=== PATIENT | female | born 1980 | race African-American/Black ===

== ENCOUNTER 2016-06-30 22:27 | Emergency (ER) | payer SELFPAY ==
[~2016-06-30] VITALS: Ht 165.1 cm; Wt 65.0 kg
[~2016-06-30 22:27] MED LIST: MULTTAB67 PO; SERO200T PO; TRIL300T PO; VIST25CA PO
[2016-06-30 22:29] VITALS: BP 148/78; PULSE 98; RESP 18; TEMP 98; O2SAT 96
--- NOTE | 2016-07-01 | PD ---
HPI Chief Complaint: Medical Clearance Time Seen by Provider: 23:55 Travel History International Travel<30 days: No Contact w/Intl Traveler<30days: No Traveled to known affect area: No History of Present Illness HPI 35-year-old black female presents to emergency department for evaluation of a rash. She states that she had stayed over a friend's house who had pets. She noticed little bumps on her skin over last several days. They're pruritic in nature. She states that she feels that she needs an IV and fluids. She also states that she needs blood work. She denies any fever or chills. No cough or congestion. No shortness of breath. No vomiting. No abdominal pain. PFSH Past Medical History Narrative Medical Depression, substance abuse, HIV Diminished Hearing: No Immune Disorder: Yes (HIV) Psychiatric: Yes LMP: 06/10/16 : 2 Para: 2 Past Surgical History Surgical History: No Previous Surgery Social History Alcohol Use: Yes Tobacco Use: Yes Substance Use: Yes Allergies-Medications (Allergen,Severity, Reaction): Coded Allergies: Haldol (Verified Allergy, Severe, 06/30/16) Reported Meds & Prescriptions Reported Meds & Active Scripts Active Reported Vistaril (Hydroxyzine Pamoate) 25 Mg Cap 25 Mg PO TID Seroquel (Quetiapine Fumarate) 200 Mg Tab 200 Mg PO HS Multiple Vitamin 1 Tab 1 Tab PO DAILY Trileptal (Oxcarbazepine) 300 Mg Tab 300 Mg PO BID Review of Systems Except as stated in HPI: all other systems reviewed are Neg Physical Exam Narrative GENERAL: This is a well-nourished, well-developed patient, in no apparent distress. SKIN: The patient has a few risk oriented mildly erythematous papular lesions on her extremities, trunk and back., ecchymoses or lesions. Warm and dry. HEAD: Atraumatic. Normocephalic. EYES: PERRL, EOMI, no discharge or injection. No scleral icterus. EARS: Clear NOSE: Nasal turbinates appear normal. THROAT: Mucosa pink and moist. Airway patent. NECK: Trachea midline. supple, moves head freely. LUNGS: Clear to auscultation. CV: Regular in rhythm. ABDOMEN: Soft nontender. EXT: No clubbing cyanosis or edema. Data Data Last Documented VS Vital Signs Date Time Temp Pulse Resp B/P Pulse Ox O2 Delivery O2 Flow Rate FiO2 06/30/16 22:29 98.0 98 18 148/78 96 Room Air MDM Medical Decision Making Medical Screen Exam Complete: Yes Emergency Medical Condition: Yes Medical Record Reviewed: Yes Differential Diagnosis MDM: High Differential diagnoses: Abscess, folliculitis, cellulitis, lymphangitis, abrasion, contact dermatitis, flea bites Narrative Course The patient appears to have insect/flea bites. She will be given a prescription for Zyrtec and triamcinolone cream. This is insect bites Diagnosis Primary Impression: Insect bites Patient Instructions: General Instructions Additional Instructions: Rest. Zyrtec and triamcinolone. Use insect repellent. Avoid staying in any areas with possible fleas. Follow-up with a medical doctor this week for recheck. Med/Other Pt SpecificInfo: Prescription(s) given Disposition: 01 DISCHARGE HOME Condition: Stable Fernando Gutierrez Jul 01, 2016 00:00
[2016-07-01] MEDS ORDERED: ZYRT10CA PO (00:02)
[2016-07-01] MEDS ORDERED: TRIA0.1L TOPICAL (00:02)
== END 2016-07-01 00:26 | disposition home or self-care (01) ==
LOC: NEPB 22:27
DX: T14.8 Other injury of unspecified body region (principal); W57.XXXA Bitten or stung by nonvenomous insect and other nonvenomous arthropods, initial encounter; Z72.0 Tobacco use; Z21 Asymptomatic human immunodeficiency virus [HIV] infection status
CPT/HCPCS: 99282

== ENCOUNTER 2016-07-01 00:32 | Emergency (ER) | payer SELFPAY ==
[~2016-07-01 00:32] MED LIST changes: +TRIA0.1L TOPICAL; +ZYRT10CA PO
[2016-07-01 01:00] VITALS: BP 141/67; PULSE 87; RESP 16; TEMP 97.9; O2SAT 96
[2016-07-01] MEDS ORDERED: SODIUM CHLOR 0.9% 1000 ML INJ 1,000 ML IV SCH (01:11)
[2016-07-01] MEDS ORDERED: SODIUM CHLORIDE 0.9% FLUSH 5 ML FLUSH IVF PRN (01:15)
[2016-07-01 01:46] LABS: BASOPHIL % 0.6 % (0.0-2.0); EOSINOPHIL # 0.1 TH/MM3 (0-0.4); EOSINOPHIL % 1.1 % (0.0-4.0); HEMATOCRIT 38.7 % (35.0-46.0); HEMO FLAGS DIFF FINAL; LYMPH % 27.2 % (9.0-44.0); LYMPHOCYTE # 1.5 TH/MM3 (1.0-4.8); MEAN CELL VOLUME 90.9 FL (80.0-100.0); MEAN CORPUSCULAR HEMOGLOBIN 31.1 PG (27.0-34.0); MEAN CORPUSCULAR HGB CONC 34.2 % (32.0-36.0); MONO % 15.9 % (0.0-8.0); NEUT % 55.2 % (16.0-70.0); PLATELET COUNT 276 TH/MM3 (150-450); RED BLOOD COUNT 4.26 MIL/MM3 (4.00-5.30); RED CELL DISTRIBUTION WIDTH 12.5 % (11.6-17.2); WHITE BLOOD COUNT 5.4 TH/MM3 (4.0-11.0)
--- NOTE | 2016-07-01 01:52 | PD ---
HPI Chief Complaint: GI Complaint Time Seen by Provider: 00:52 Travel History International Travel<30 days: No Contact w/Intl Traveler<30days: No Traveled to known affect area: No History of Present Illness HPI 35-year-old female arrives to the ER and complains of what she believes to be kidney pain and liver pain. She believes she is dehydrated. She states she has recently used drugs, "maybe Adderall." She denies abdominal pain or fever. She also reports insomnia 3 days. Severity [id number]. She denies suicidal/homicidal ideation. PFSH Past Medical History Diminished Hearing: No Immune Disorder: Yes (HIV) Psychiatric: Yes ?: Unknown LMP: PT UNSURE : 2 Para: 2 Past Surgical History Surgical History: No Previous Surgery Social History Alcohol Use: Yes (OCC) Tobacco Use: No ("I JUST QUIT") Substance Use: Yes Allergies-Medications (Allergen,Severity, Reaction): Coded Allergies: Haldol (Verified Allergy, Severe, 06/30/16) Reported Meds & Prescriptions Reported Meds & Active Scripts Active Triamcinolone Topical (Triamcinolone Acetonide) 0.1% Lotn 1 Applic TOPICAL TID Zyrtec Allergy (Cetirizine HCl) 10 Mg Cap 10 Mg PO DAILY Reported Vistaril (Hydroxyzine Pamoate) 25 Mg Cap 25 Mg PO TID Seroquel (Quetiapine Fumarate) 200 Mg Tab 200 Mg PO HS Multiple Vitamin 1 Tab 1 Tab PO DAILY Trileptal (Oxcarbazepine) 300 Mg Tab 300 Mg PO BID Review of Systems Except as stated in HPI: all other systems reviewed are Neg Physical Exam Narrative GENERAL: 35-year-old female pleasant SKIN: Warm and dry. HEAD: Atraumatic. Normocephalic. EYES: Pupils equal and round. No scleral icterus. No injection or drainage. ENT: No nasal bleeding or discharge. Mucous membranes pink and moist. NECK: Trachea midline. No JVD. CARDIOVASCULAR: Regular rate and rhythm. No murmur appreciated. RESPIRATORY: No accessory muscle use. Clear to auscultation. Breath sounds equal bilaterally. GASTROINTESTINAL: Abdomen soft, non-tender, nondistended. Hepatic and splenic margins not palpable. MUSCULOSKELETAL: No obvious deformities. No clubbing. No cyanosis. No edema. NEUROLOGICAL: Awake and alert. No obvious cranial nerve deficits. Motor grossly within normal limits. Normal speech. PSYCHIATRIC: No HI/SI. No apparent response to internal stimuli. Data Data Last Documented VS Vital Signs Date Time Temp Pulse Resp B/P Pulse Ox O2 Delivery O2 Flow Rate FiO2 07/01/16 01:00 97.9 87 16 141/67 96 Room Air Orders Complete Blood Count With Diff (07/01/16 01:11) Comprehensive Metabolic Panel (07/01/16 01:11) Urinalysis - C+S If Indicated (07/01/16 01:11) Iv Access Insert/Monitor (07/01/16 01:11) Ecg Monitoring (07/01/16 01:11) Oximetry (07/01/16 01:11) Sodium Chlor 0.9% 1000 Ml Inj (Ns 1000 M (07/01/16 01:11) Sodium Chloride 0.9% Flush (Ns Flush) (07/01/16 01:15) Drug Screen, Random Urine (07/01/16 01:41) Labs Laboratory Tests Test 07/01/16 01:35 White Blood Count 5.4 TH/MM3 Red Blood Count 4.26 MIL/MM3 Hemoglobin 13.3 GM/DL Hematocrit 38.7 % Mean Corpuscular Volume 90.9 FL Mean Corpuscular Hemoglobin 31.1 PG Mean Corpuscular Hemoglobin 34.2 % Concent Red Cell Distribution Width 12.5 % Platelet Count 276 TH/MM3 Mean Platelet Volume 8.5 FL Neutrophils (%) (Auto) 55.2 % Lymphocytes (%) (Auto) 27.2 % Monocytes (%) (Auto) 15.9 % Eosinophils (%) (Auto) 1.1 % Basophils (%) (Auto) 0.6 % Neutrophils # (Auto) 3.0 TH/MM3 Lymphocytes # (Auto) 1.5 TH/MM3 Monocytes # (Auto) 0.9 TH/MM3 Eosinophils # (Auto) 0.1 TH/MM3 Basophils # (Auto) 0.0 TH/MM3 CBC Comment DIFF FINAL Differential Comment Sodium Level 139 MEQ/L Potassium Level 3.6 MEQ/L Chloride Level 103 MEQ/L Carbon Dioxide Level 26.2 MEQ/L Anion Gap 10 MEQ/L Blood Urea Nitrogen 15 MG/DL Creatinine 1.00 MG/DL Estimat Glomerular Filtration 77 ML/MIN Rate Random Glucose 86 MG/DL Calcium Level 8.8 MG/DL Total Bilirubin 0.3 MG/DL Aspartate Amino Transf 20 U/L (AST/SGOT) Alanine Aminotransferase 18 U/L (ALT/SGPT) Alkaline Phosphatase 56 U/L Total Protein 8.5 GM/DL Albumin 3.6 GM/DL MDM Medical Decision Making Medical Screen Exam Complete: Yes Emergency Medical Condition: Yes Medical Record Reviewed: Yes Differential Diagnosis Electrolyte imbalance, anemia, dehydration, polysubstance abuse, renal insufficiency, liver disease Narrative Course CBC & BMP Diagram 07/01/16 01:35 LFTs normal The patient has been wandering about the pod and the ER generally. No objective sign of distress is been observed. The patients results and examination findings were discussed. The repeat examination is unremarkable and benign. The history, exam, diagnostic testing, and current condition do not suggest any significant pathology to warrant further testing, continued ED treatment, admission, or surgical evaluation at this point. The vital signs have been stable. The patient does not have uncontrollable pain, intractable vomiting, or other significant symptoms. The patient's condition is stable and appropriate for discharge. Diagnosis Primary Impression: Insomnia Qualified Code: G47.00 - Insomnia, unspecified type Referrals: Primary Care Physician call for appointment Additional Instructions: You have a choice when it comes to health care, and we are glad that you chose [facility]. Hopefully, we have met your expectations on today's visit. You are welcome to return to [facility] at any time, as we are committed to meeting the health care needs of our community. Med/Other Pt SpecificInfo: No Change to Meds Disposition: 01 DISCHARGE HOME Condition: Stable Sukumar Espana MD Jul 01, 2016 01:52
[2016-07-01 02:06] LABS: ALT (GPT) 18 U/L (10-53); ANION GAP 10 MEQ/L (5-15); AST (GOT) 20 U/L (15-37); BICARBONATE 26.2 MEQ/L (21.0-32.0); BLOOD UREA NITROGEN 15 MG/DL (7-18); CHLORIDE 103 MEQ/L (98-107); GLOMERULAR FILTRATION RATE 77 ML/MIN (>89); POTASSIUM 3.6 MEQ/L (3.5-5.1); SODIUM (NA) 139 MEQ/L (136-145)
[2016-07-01 02:07] LABS: ALKALINE PHOSPHATASE 56 U/L (45-117); TOTAL BILIRUBIN ADULT 0.3 MG/DL (0.2-1.0)
== END 2016-07-01 04:40 | disposition home or self-care (01) ==
LOC: NEPC 00:32
DX: G47.00 Insomnia, unspecified (principal); Z87.891 Personal history of nicotine dependence
CPT/HCPCS: 80053; 85025; 99283; J7030

== ENCOUNTER 2016-07-01 04:37 | Emergency (ER) | payer OTHER ==
[~2016-07-01] VITALS: Ht 165.1 cm; Wt 70.0 kg
[2016-07-01] MEDS ORDERED: ZIPRASIDONE MESYLATE 20 MG VIAL IM ONE (05:30)
[2016-07-01] MEDS ORDERED: diphenhydrAMINE HCL 50 MG/ML VIAL IM ONE (05:30)
--- NOTE | 2016-07-01 06:27 | PD ---
HPI Chief Complaint: Erazo act Time Seen by Provider: 06:22 Travel History International Travel<30 days: No Contact w/Intl Traveler<30days: No Traveled to known affect area: No History of Present Illness HPI 35-year-old black female returns to the ER for a third visit this evening. This time she is under a Erazo act. The patient allegedly had notified PD that she was having suicidal thoughts. She did not elaborate on any plan. Here in the ER she states that she has not been properly evaluated. She wants IV fluids , blood work, and a protein diet. She also would like a multivitamin. The patient is refusing to get back into her examination room. She is being confrontational with the nursing staff. PFSH Past Medical History Diminished Hearing: No Immune Disorder: Yes (HIV) Psychiatric: Yes : 2 Para: 2 Social History Alcohol Use: Yes (OCC) Tobacco Use: No ("I JUST QUIT") Substance Use: Yes Allergies-Medications (Allergen,Severity, Reaction): Coded Allergies: Haldol (Verified Allergy, Severe, 06/30/16) Reported Meds & Prescriptions Reported Meds & Active Scripts Active Triamcinolone Topical (Triamcinolone Acetonide) 0.1% Lotn 1 Applic TOPICAL TID Zyrtec Allergy (Cetirizine HCl) 10 Mg Cap 10 Mg PO DAILY Reported Vistaril (Hydroxyzine Pamoate) 25 Mg Cap 25 Mg PO TID Seroquel (Quetiapine Fumarate) 200 Mg Tab 200 Mg PO HS Multiple Vitamin 1 Tab 1 Tab PO DAILY Trileptal (Oxcarbazepine) 300 Mg Tab 300 Mg PO BID Review of Systems Except as stated in HPI: all other systems reviewed are Neg General / Constitutional: No: Fever, Chills Eyes: No: Blurred Vision, Visual changes HENT: Positive: Headaches, No: Sore Throat Cardiovascular: No: Chest Pain or Discomfort, Palpitations Respiratory: No: Cough, Shortness of Breath Gastrointestinal: No: Nausea, Vomiting Genitourinary: No: Frequency, Dysuria Musculoskeletal: No: Myalgias, Arthralgias Skin: Positive Rash, Positive Itching Neurologic: No: Weakness, Syncope Psychiatric: Positive: Suicidal Ideations, Disorder of Thought, Mood Disorder, Substance Abuse, No: Anxiety, Depression, Homicidal Ideation Physical Exam Narrative GENERAL: Well-nourished, well-developed patient. SKIN: Warm and dry. Patient has several excoriated papular lesions on her arms and trunk consistent with insect bite HEAD: Normocephalic and atraumatic. EYES: No scleral icterus. No injection or drainage. ENT: No nasal drainage noted. Mucous membranes pink. Airway patent. NECK: Supple, trachea midline. Moves head freely without obvious discomfort. CARDIOVASCULAR: Regular rate and rhythm without murmurs, gallops, or rubs. RESPIRATORY: Breath sounds equal bilaterally. No accessory muscle use. GASTROINTESTINAL: Abdomen soft, non-tender, nondistended. EXTREMITIES: No cyanosis or edema. BACK: Nontender without obvious deformity. No CVA tenderness. NEURO: Patient is alert and oriented. no sensorimotor deficits. Nonfocal. Normal speech. PSYCH: Patient is fixated on the delusion of dehydration and requiring IV fluids. No auditory or visual hallucinations. Data Data Orders Drug Screen, Random Urine (07/01/16 04:59) Alcohol (Ethanol) (07/01/16 04:59) Comprehensive Metabolic Panel (07/01/16 05:06) Psych Screen (07/01/16 05:06) Ziprasidone Inj (Geodon Inj) (07/01/16 05:30) Diphenhydramine Inj (Benadryl Inj) (07/01/16 05:30) Restraints Non-Violent [id number] (07/01/16 05:27) Diet Regular Basic (07/01/16 Breakfast) MDM Medical Decision Making Medical Screen Exam Complete: Yes Emergency Medical Condition: Yes Medical Record Reviewed: Yes Differential Diagnosis MDM: High Differential diagnoses: Schizophrenia, schizoaffective disorder, bipolar, anxiety, depression, adjustment reaction, mood disorder NOS, ODD, depressive disorder NOS, dementia, dementia with agitation, psychosis NOS, substance induced mood disorder, intermittent explosive disorder, Asperger syndrome, infection,electrolyte abnormality, malingering. Narrative Course Mental health screening discussed with the patient. Psychiatric screen ordered. The patient has been uncooperative and intrusive. She is refusing to stay in her room. Nonviolent restraints have been ordered. She is given Geodon 20 mg IM and 50 mg of Benadryl IM and seclusion with her door closed. Once the patient becomes more cooperative and responsive to treatment patient's seclusion will be D escalated. The patient's been medically cleared. Condition: Stable Fernando Gutierrez Jul 01, 2016 06:27
[2016-07-01 06:37] LABS: AMPHETAMINE, URINE NEG (NEG); BARBITURATES, URINE NEG (NEG); COCAINE, URINE POS (NEG)
[2016-07-01 14:29] VITALS: BP 136/80; PULSE 80; RESP 18; TEMP 98.5; O2SAT 98
== END 2016-07-01 15:19 ==
LOC: NEPJ 04:37
DX: F43.23 Adjustment disorder with mixed anxiety and depressed mood (principal); Z87.891 Personal history of nicotine dependence
CPT/HCPCS: 80307; 96372; 99284; J1200; J3486

== ENCOUNTER 2016-09-19 21:07 | Emergency (ER) | payer SELFPAY ==
[~2016-09-19] VITALS: Ht 165.1 cm; Wt 65.0 kg
[2016-09-19 21:09] VITALS: BP 132/94; PULSE 88; RESP 18; TEMP 98.3; O2SAT 96
[2016-09-20 04:42] LABS: CHLAMYDIA PCR NOT DETECTED (NOT DETECT); NEISSERIA PCR NOT DETECTED (NOT DETECT)
[2016-09-20] MEDS ORDERED: AZITHROMYCIN PWD FOR SUSP 1 GM PACKET PO ONE (04:45)
[2016-09-20] MEDS ORDERED: cefTRIAXone 250 MG VIAL IM ONE (04:45)
[2016-09-20] MEDS ORDERED: LIDOCAINE HCL 1% 50 ML VIAL IM ONE (04:45)
--- NOTE | 2016-09-20 04:47 | PD ---
HPI Chief Complaint: Abdominal Pain Time Seen by Provider: 02:07 Travel History International Travel<30 days: No Contact w/Intl Traveler<30days: No Traveled to known affect area: No History of Present Illness HPI 36-year-old female arrives to the ER with complaint of nausea vomiting diarrhea for 4 days. On my assessment the patient is soundly asleep. She is so sleepy that she is unable to cooperate with the history of present illness and physical examination. Eventually she stated she thinks she might have an STD. She states her last menstruation was several days ago. History is otherwise limited. PFSH Past Medical History Cardiovascular Problems: Yes (HTN) Diminished Hearing: No Immune Disorder: Yes (HIV) Psychiatric: Yes (bipolar) Tetanus Vaccination: > 5 Years Influenza Vaccination: No ?: Unknown LMP: 09/13 : 2 Para: 2 Social History Alcohol Use: Yes (OCC) Tobacco Use: No ("I JUST QUIT") Substance Use: Yes Allergies-Medications (Allergen,Severity, Reaction): Coded Allergies: Haldol (Verified Allergy, Severe, 09/20/16) Reported Meds & Prescriptions Reported Meds & Active Scripts Active Triamcinolone Topical (Triamcinolone Acetonide) 0.1% Lotn 1 Applic TOPICAL TID Zyrtec Allergy (Cetirizine HCl) 10 Mg Cap 10 Mg PO DAILY Reported Vistaril (Hydroxyzine Pamoate) 25 Mg Cap 25 Mg PO TID Seroquel (Quetiapine Fumarate) 200 Mg Tab 200 Mg PO HS Multiple Vitamin 1 Tab 1 Tab PO DAILY Trileptal (Oxcarbazepine) 300 Mg Tab 300 Mg PO BID Review of Systems ROS Limitations: Uncooperative Physical Exam Narrative GENERAL: Well-nourished well-developed 36-year-old female GENITOURINARY: Minimal discharge in the vault white. + CMT. SKIN: Focused skin assessment warm/dry. HEAD: Atraumatic. Normocephalic. EYES: Pupils equal and round. No scleral icterus. No injection or drainage. ENT: No nasal bleeding or discharge. Mucous membranes pink and moist. NECK: Trachea midline. No JVD. CARDIOVASCULAR: Regular rate and rhythm. No murmur appreciated. RESPIRATORY: No accessory muscle use. Clear to auscultation. Breath sounds equal bilaterally. GASTROINTESTINAL: Abdomen soft, non-tender, nondistended. Hepatic and splenic margins not palpable. MUSCULOSKELETAL: No obvious deformities. No clubbing. No cyanosis. No edema. NEUROLOGICAL: Awake and alert. No obvious cranial nerve deficits. Motor grossly within normal limits. Normal speech. PSYCHIATRIC: Appropriate mood and affect; insight and judgment normal. Data Data Last Documented VS Vital Signs Date Time Temp Pulse Resp B/P Pulse Ox O2 Delivery O2 Flow Rate FiO2 09/20/16 01:58 18 09/19/16 21:09 98.3 88 132/94 96 Room Air VS reviewed Orders Gc And Chlamydia Pcr (09/20/16 02:18) Wet Prep Profile (09/20/16 02:18) Urinalysis - C+S If Indicated (09/20/16 02:18) Ed Urine Pregnancytest Poc (09/20/16 02:18) Labs Laboratory Tests Test 09/20/16 02:47 Clue Cells (Wet Prep) NONE SEEN Vaginal Trichomonas (Wet Prep) NONE SEEN Vaginal Yeast (Wet Prep) NONE SEEN Chlamydia trachomatis DNA NOT DETECTED (PCR) Neisseria gonorrhoeae DNA NOT DETECTED (PCR) MDM Medical Decision Making Medical Screen Exam Complete: Yes Emergency Medical Condition: Yes Medical Record Reviewed: Yes Differential Diagnosis IUP, UTI, ectopic , ov torsion, appendicitis, TOA, cervicitis, BV, Trichomoniasis, ov cyst, hernia, mittelschmerz, pain from menstruation Narrative Course Etiology is unclear however we can say with a reasonable degree of certainty there is no emergency as the patient has remained soundly sleeping throughout her ER stay. Her abdomen is soft. There is no focus of tenderness. Emperic coverage for cervicitis provided. Diagnosis Primary Impression: Cervicitis Referrals: Primary Care Physician 2 days Additional Instructions: You have a choice when it comes to health care, and we are glad that you chose [facility]. Hopefully, we have met your expectations on today's visit. You are welcome to return to [facility] at any time, as we are committed to meeting the health care needs of our community. Med/Other Pt SpecificInfo: No Change to Meds Disposition: 01 DISCHARGE HOME Condition: Stable Sukumar Espana MD Sep 20, 2016 04:47
[2016-09-20 05:23] LABS: AUTOMATED NEUTROPHIL # 1.5 TH/MM3 (1.8-7.7); BASOPHIL % 0.6 % (0.0-2.0); EOSINOPHIL # 0.1 TH/MM3 (0-0.4); EOSINOPHIL % 2.9 % (0.0-4.0); HEMATOCRIT 35.2 % (35.0-46.0); HEMO FLAGS DIFF FINAL; LYMPH % 43.9 % (9.0-44.0); LYMPHOCYTE # 1.7 TH/MM3 (1.0-4.8); MEAN CELL VOLUME 90.3 FL (80.0-100.0); MEAN CORPUSCULAR HEMOGLOBIN 30.9 PG (27.0-34.0); MEAN CORPUSCULAR HGB CONC 34.2 % (32.0-36.0); MONO % 12.6 % (0.0-8.0); PLATELET COUNT 281 TH/MM3 (150-450); RED CELL DISTRIBUTION WIDTH 13.6 % (11.6-17.2); WHITE BLOOD COUNT 3.8 TH/MM3 (4.0-11.0)
[2016-09-20 05:42] LABS: ANION GAP 7 MEQ/L (5-15)
[2016-09-20 05:44] LABS: ALKALINE PHOSPHATASE 52 U/L (45-117); ALT (GPT) 17 U/L (10-53); AST (GOT) 20 U/L (15-37); BICARBONATE 27.8 MEQ/L (21.0-32.0); BLOOD UREA NITROGEN 8 MG/DL (7-18); CHLORIDE 105 MEQ/L (98-107); GLOMERULAR FILTRATION RATE 86 ML/MIN (>89); POTASSIUM 3.2 MEQ/L (3.5-5.1); SODIUM (NA) 140 MEQ/L (136-145); TOTAL BILIRUBIN ADULT 0.2 MG/DL (0.2-1.0)
[2016-09-20 05:56] LABS: AMPHETAMINE, URINE NEG (NEG); BARBITURATES, URINE NEG (NEG); COCAINE, URINE POS (NEG)
[2016-09-20 06:30] LABS: BACTERIA, URINE RARE /hpf; BLOOD, URINE NEG (NEG); COMMENT (UR) CULT NOT INDICATED; CULTURE IF INDICATED CULT NOT INDICATED; GLUCOSE,URINE NEG (NEG); KETONE, URINE NEG (NEG); MUCUS URINE FEW /lpf (OCC); NITRITE,URINE NEG (NEG); PH, URINE 6.5 (5.0-8.5); SQUAMOUS EPITHELIAL CELL URINE 1 /hpf (0-5); URINE COLOR YELLOW (YELLW/STRAW)
[2016-09-20 10:00] VITALS: BP 121/81; PULSE 79; RESP 18; O2SAT 99
[2016-09-20 14:01] VITALS: BP 126/86; PULSE 81; RESP 18; TEMP 98.3; O2SAT 96
--- NOTE | 2016-09-20 14:50 | PD ---
History of Present Illness Chief Complaint: Abdominal Pain Time Seen by Provider: 14:30 Travel History International Travel<30 Days: No Contact w/Intl Traveler<30days: No Known affected area: No Legal Status Legal Status: Voluntary History of Present Illness: This is a 36-year-old female who initially presented to the emergency department with complaints of abdominal pain. When she was being readied for discharged she apparently threatened suicide if she was not admitted. She was transferred over to the psychiatric area where this physician evaluated her. The patient sometimes threatens suicide and other times does not. She is obviously being manipulative and states if she gets treated the way she wants she will not be suicidal. She also states that she wants lunch and she wants a ride home, indicating that she has future plans. This physician was with her when she called her mother and the patient told her mother she had been using illicit drugs for the last several weeks and that it was "messing" her up on the inside and that she needed to stop. Apparently she was at [facility] yesterday but refused to wait for a bed. She does not appreciate hearing this facility is not license for detox and rehabilitation. She does not show symptoms of true depression as she does not exhibit a depressed mood, anhedonia , diminished energy, appetite loss or sleep disturbance. Despite the potential for this patient to act out if not given her way, this physician feels it is counter therapeutic to admit her to psychiatry. She states at one time that she has "bipolar, schizophrenia, OCD, depression". She does not actually appear to have any psychotic illness or bipolar illness. This physician informed her that the main problem she has is with drug abuse. PFSH Past Medical History Medical History: Denies Significant Hx Cardiovascular Problems: Yes (HTN) Diminished Hearing: No Immune Disorder: Yes (HIV) Psychiatric: Yes (bipolar) Tetanus Vaccination: > 5 Years Influenza Vaccination: No ?: Unknown LMP: 09/13 : 2 Para: 2 Psychiatric History Psychiatric History Hx Psychiatric Treatment: [facility] History of Inpatient Treatment: Yes Social History Hx Alcohol Use: Yes (OCC) Hx Tobacco Use: No ("I JUST QUIT") Hx Substance Use: No (Refuses to cooperate or answer) Substance Use Type: Marijuana, Cocaine Hx of Substance Use Treatment: No Allergies-Medications (Allergen,Severity, Reaction): Coded Allergies: Haldol (Verified Allergy, Severe, 09/20/16) Reported Meds & Prescriptions Reported Meds & Active Scripts Active Triamcinolone Topical (Triamcinolone Acetonide) 0.1% Lotn 1 Applic TOPICAL TID Zyrtec Allergy (Cetirizine HCl) 10 Mg Cap 10 Mg PO DAILY Reported Vistaril (Hydroxyzine Pamoate) 25 Mg Cap 25 Mg PO TID Seroquel (Quetiapine Fumarate) 200 Mg Tab 200 Mg PO HS Multiple Vitamin 1 Tab 1 Tab PO DAILY Trileptal (Oxcarbazepine) 300 Mg Tab 300 Mg PO BID Review of Systems ROS Limitations: Clinical Condition Except as stated in HPI: all other systems reviewed are Neg Gastrointestinal: COMPLAINS OF: Abdominal pain Exam Exam Limitations: Clinical Condition Alert: Yes [place]: Person, Place, Date, Situation Mood: Oppositional Affect: Labile Speech: Clear, Logical Eye Contact: Normal Memory Intact: Immediate, Recent, Remote Insight/Judgement Adequate except for her illicit drug use, including ice and methamphetamine and marijuana and cocaine. MDM Medical Decision Making Medical Record Reviewed: Yes Assessment/Plan Patient is to be discharged back to her mother into land. She is calling her mother for a ride. If this does not work, we will attempt to provide public transportation for her. However, this physician feels it is not appropriate to admit her, despite any threats she may make. Orders Gc And Chlamydia Pcr (09/20/16 02:18) Wet Prep Profile (09/20/16 02:18) Urinalysis - C+S If Indicated (09/20/16 02:18) Ed Urine Pregnancytest Poc (09/20/16 02:18) Azithromycin Powd Pack (Zithromax Powd P (09/20/16 04:45) Ceftriaxone Inj (Rocephin Inj) (09/20/16 04:45) Lidocaine 1% Inj (50 Ml) (Xylocaine 1% I (09/20/16 04:45) Complete Blood Count With Diff (09/20/16 05:03) Comprehensive Metabolic Panel (09/20/16 05:03) Psych Screen (09/20/16 05:03) Drug Screen, Random Urine (09/20/16 05:03) Alcohol (Ethanol) (09/20/16 05:03) Results Vital Signs Date Time Temp Pulse Resp B/P Pulse Ox O2 Delivery O2 Flow Rate FiO2 09/20/16 14:01 98.3 81 18 126/86 96 Room Air 09/20/16 10:00 79 18 121/81 99 Room Air 09/20/16 01:58 18 09/19/16 21:09 98.3 88 18 132/94 96 Room Air Laboratory Tests Test 09/20/16 09/20/16 02:47 05:10 Clue Cells (Wet Prep) NONE SEEN Vaginal Trichomonas (Wet Prep) NONE SEEN Vaginal Yeast (Wet Prep) NONE SEEN Chlamydia trachomatis DNA NOT DETECTED (PCR) Neisseria gonorrhoeae DNA NOT DETECTED (PCR) White Blood Count 3.8 Red Blood Count 3.90 Hemoglobin 12.0 Hematocrit 35.2 Mean Corpuscular Volume 90.3 Mean Corpuscular Hemoglobin 30.9 Mean Corpuscular Hemoglobin 34.2 Concent Red Cell Distribution Width 13.6 Platelet Count 281 Mean Platelet Volume 8.7 Neutrophils (%) (Auto) 40.0 Lymphocytes (%) (Auto) 43.9 Monocytes (%) (Auto) 12.6 Eosinophils (%) (Auto) 2.9 Basophils (%) (Auto) 0.6 Neutrophils # (Auto) 1.5 Lymphocytes # (Auto) 1.7 Monocytes # (Auto) 0.5 Eosinophils # (Auto) 0.1 Basophils # (Auto) 0.0 CBC Comment DIFF FINAL Differential Comment Urine Color YELLOW Urine Turbidity CLEAR Urine pH 6.5 Urine Specific [place] 1.009 Urine Protein NEG Urine Glucose (UA) NEG Urine Ketones NEG Urine Occult Blood NEG Urine Nitrite NEG Urine Bilirubin NEG Urine Urobilinogen LESS THAN 2.0 Urine Leukocyte Esterase NEG Urine WBC 1 Urine Squamous Epithelial 1 Cells Urine Bacteria RARE Urine Mucus FEW Microscopic Urinalysis Comment CULT NOT INDICATED Sodium Level 140 Potassium Level 3.2 Chloride Level 105 Carbon Dioxide Level 27.8 Anion Gap 7 Blood Urea Nitrogen 8 Creatinine 0.90 Estimat Glomerular Filtration 86 Rate Random Glucose 91 Calcium Level 8.7 Total Bilirubin 0.2 Aspartate Amino Transf 20 (AST/SGOT) Alanine Aminotransferase 17 (ALT/SGPT) Alkaline Phosphatase 52 Total Protein 7.6 Albumin 3.3 Urine Opiates Screen NEG Urine Barbiturates Screen NEG Urine Amphetamines Screen NEG Urine Benzodiazepines Screen NEG Urine Cocaine Screen POS Urine Cannabinoids Screen POS Ethyl Alcohol Level LESS THAN 3 Diagnosis Primary Impression: Adjustment disorder with mixed disturbance of emotions and conduct Referrals: Primary Care Physician 2 days Departure Forms: Tests/Procedures Patient Instructions: General Instructions Additional Instructions: You have a choice when it comes to health care, and we are glad that you chose [facility]. Hopefully, we have met your expectations on today's visit. You are welcome to return to [facility] at any time, as we are committed to meeting the health care needs of our community. Disposition: 01 DISCHARGE HOME Condition: Stable Neel Kumar MD Sep 20, 2016 14:50
[2016-09-20 15:28] VITALS: BP 126/86; PULSE 81; RESP 18; O2SAT 96
== END 2016-09-20 16:32 | disposition home or self-care (01) ==
LOC: NEPC 21:07 → NEPJ 09-20 16:32
DX: F43.25 Adjustment disorder with mixed disturbance of emotions and conduct (principal); I10 Essential (primary) hypertension; B20 Human immunodeficiency virus [HIV] disease; F14.10 Cocaine abuse, uncomplicated; F12.10 Cannabis abuse, uncomplicated
CPT/HCPCS: 80053; 80307; 81001; 84703; 85025; 87210; 87491; 87591; 96372; 99284; J0696

== ENCOUNTER 2016-12-28 20:54 | Emergency (ER) | payer SELFPAY ==
[~2016-12-28] VITALS: Ht 165.1 cm; Wt 65.0 kg
[2016-12-28 20:56] VITALS: BP 151/93; PULSE 61; RESP 18; O2SAT 100
[2016-12-28] MEDS ORDERED: IBUP800T23 PO (21:05)
[2016-12-28] MEDS ORDERED: AMOX500C PO (21:05)
--- NOTE | 2016-12-28 21:14 | PD ---
HPI Chief Complaint: Oral / Dental Pain or Problem Time Seen by Provider: 21:11 Travel History International Travel<30 days: No Contact w/Intl Traveler<30days: No Traveled to known affect area: No History of Present Illness HPI 36-year-old white female presents to emergency department complains of dental pain for the past day and a half. She has at [facility] for substance abuse. She states that she's had increasing dental pain on the right upper maxilla. No fever chills. No drainage. She states the pain is severe. The patient states that Tylenol and ibuprofen just doesn't cut it. PFSH Past Medical History Cardiovascular Problems: Yes (HTN) Diminished Hearing: No Immune Disorder: Yes (HIV) Psychiatric: Yes (bipolar) Tetanus Vaccination: < 5 Years : 2 Para: 2 Social History Alcohol Use: Yes (OCC) Tobacco Use: No ("I JUST QUIT") Substance Use: Yes (Refuses to cooperate or answer) Allergies-Medications (Allergen,Severity, Reaction): Coded Allergies: Haldol (Verified Allergy, Severe, 12/28/16) Reported Meds & Prescriptions Reported Meds & Active Scripts Active Ibuprofen 800 Mg Tab 800 Mg PO Q8H PRN Amoxicillin 500 Mg Cap 1,000 Mg PO BID Triamcinolone Topical (Triamcinolone Acetonide) 0.1% Lotn 1 Applic TOPICAL TID Zyrtec Allergy (Cetirizine HCl) 10 Mg Cap 10 Mg PO DAILY Reported Vistaril (Hydroxyzine Pamoate) 25 Mg Cap 25 Mg PO TID Seroquel (Quetiapine Fumarate) 200 Mg Tab 200 Mg PO HS Multiple Vitamin 1 Tab 1 Tab PO DAILY Trileptal (Oxcarbazepine) 300 Mg Tab 300 Mg PO BID Review of Systems Except as stated in HPI: all other systems reviewed are Neg General / Constitutional: No: Fever Eyes: No: Blurred Vision, Drainage HENT: Positive: Dental Difficulties, Earache, No: Headaches, Lightheadedness, Gingival Bleeding, Ear Discharge Physical Exam Narrative GENERAL: Well-developed, well-nourished in no acute distress. Nontoxic appearing. HEAD: Normocephalic, atraumatic. EYES: Pupils equal round and reactive. Extraocular motions intact. No scleral icterus. No injection or drainage. ENT: TMs clear without erythema. The external auditory canals clear. Nose: clear . Posterior pharynx is pink and moist. No tonsillar edema or exudate. Uvula midline. Airway patent. Patient has diffuse periodontal disease. She has a tooth is decayed below the gumline in the right upper maxilla and the area of her premolar. There is gingival edema. No drainage. Pain to percussion. NECK: Trachea midline.Supple, nontender, moves head freely. No central bony tenderness or spasm. CARDIOVASCULAR: Regular rate and rhythm without murmurs, gallops, or rubs. RESPIRATORY: Clear to auscultation. Breath sounds equal bilaterally. No wheezes , rales, or rhonchi. GASTROINTESTINAL: Abdomen soft, non-tender, nondistended. No hepato-splenomegaly , or palpable masses. No guarding. EXTREMITIES: No clubbing, cyanosis, or edema. No joint tenderness, effusion, or edema noted. BACK: Nontender without deformity or crepitance. No flank tenderness. Data Data Last Documented VS Vital Signs Date Time Temp Pulse Resp B/P Pulse Ox O2 Delivery O2 Flow Rate FiO2 12/28/16 20:56 61 18 151/93 100 Room Air Orders Amoxicillin (Trimox) (12/28/16 21:15) Ibuprofen (Motrin) (12/28/16 21:15) MDM Medical Decision Making Medical Screen Exam Complete: Yes Emergency Medical Condition: Yes Medical Record Reviewed: Yes Differential Diagnosis MDM: Moderate Differential diagnoses: Dental abscess, dental caries, osteitis, cellulitis Narrative Course Patient's given a dental block with 0.5% Marcaine, Motrin 800 mg and amoxicillin 1 g by mouth. This is dentalgia, dental caries Diagnosis Primary Impression: Dental caries Additional Impression: Dentalgia Patient Instructions: General Instructions Additional Instructions: Rest. Saltwater gargles. Bland oil on cotton balls. Amoxicillin and Motrin. follow-up with a dentist as soon as possible. And return to the ER if any problems. Med/Other Pt SpecificInfo: Prescription(s) given Scripts Ibuprofen 800 Mg [id number] Mg PO Q8H PRN (Pain/Inflammation) #30 TAB Prov:Amanda Burden MD 12/28/16 Amoxicillin 500 Mg Cap1,000 Mg PO BID #40 CAP Prov:Amanda Burden MD 12/28/16 Disposition: 01 DISCHARGE HOME Condition: Stable Fernando Gutierrez PA Dec 28, 2016 21:14
[2016-12-28] MEDS ORDERED: IBUPROFEN 800 MG TAB PO ONE (21:15)
[2016-12-28] MEDS ORDERED: AMOXICILLIN (TRIHYDRATE) 500 MG CAP PO ONE (21:15)
== END 2016-12-28 21:32 | disposition home or self-care (01) ==
LOC: NEPD 20:54
DX: K02.9 Dental caries, unspecified (principal); I10 Essential (primary) hypertension
CPT/HCPCS: 64400

== ENCOUNTER 2017-01-30 02:54 | Emergency (ER) | payer SELFPAY ==
[~2017-01-30] VITALS: Ht 165.1 cm; Wt 65.0 kg
[~2017-01-30 02:54] MED LIST changes: +AMOX500C PO; +IBUP800T23 PO
[2017-01-30 02:57] VITALS: BP 124/93; PULSE 72; RESP 16; TEMP 98.9; O2SAT 98
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
== END 2017-01-30 03:53 | disposition home or self-care (01) ==
LOC: NEPE 02:54
DX: T24.201A Burn of second degree of unspecified site of right lower limb, except ankle and foot, initial encounter (principal); X08.8XXA Exposure to other specified smoke, fire and flames, initial encounter; I10 Essential (primary) hypertension; Z87.891 Personal history of nicotine dependence
CPT/HCPCS: 99282

== ENCOUNTER 2017-02-01 08:16 | Emergency (ER) | payer SELFPAY ==
[~2017-02-01] VITALS: Ht 167.6 cm; Wt 54.0 kg
[2017-02-01 08:42] VITALS: BP 128/94; PULSE 68; RESP 18; TEMP 97.7
[2017-02-01] MEDS ORDERED: diphenhydrAMINE HCL 50 MG/ML VIAL IM ONE (09:00)
[2017-02-01] MEDS ORDERED: HALOPERIDOL LACTATE 5 MG/ML AMP IM ONE (09:00)
[2017-02-01] MEDS ORDERED: SODIUM CHLOR 0.9% 1000 ML INJ 1,000 ML IV ONE (09:00)
[2017-02-01] MEDS ORDERED: LORazepam 2 MG/ML VIAL IM ONE ×2 (09:00→10:15)
[2017-02-01 10:23] LABS: AUTOMATED NEUTROPHIL # 1.5 TH/MM3 (1.8-7.7); BASOPHIL % 0.6 % (0.0-2.0); EOSINOPHIL % 1.4 % (0.0-4.0); HEMATOCRIT 36.7 % (35.0-46.0); HEMO FLAGS DIFF FINAL; LYMPH % 38.8 % (9.0-44.0); LYMPHOCYTE # 1.4 TH/MM3 (1.0-4.8); MEAN CELL VOLUME 89.5 FL (80.0-100.0); MEAN CORPUSCULAR HEMOGLOBIN 30.1 PG (27.0-34.0); MEAN CORPUSCULAR HGB CONC 33.6 % (32.0-36.0); MONO % 17.1 % (0.0-8.0); NEUT % 42.1 % (16.0-70.0); PLATELET COUNT 237 TH/MM3 (150-450); RED CELL DISTRIBUTION WIDTH 14.1 % (11.6-17.2); WHITE BLOOD COUNT 3.7 TH/MM3 (4.0-11.0)
[2017-02-01 10:39] LABS: ALT (GPT) 23 U/L (10-53); ANION GAP 11 MEQ/L (5-15); AST (GOT) 26 U/L (15-37); BICARBONATE 23.4 MEQ/L (21.0-32.0); BLOOD UREA NITROGEN 9 MG/DL (7-18); CHLORIDE 106 MEQ/L (98-107); GLOMERULAR FILTRATION RATE 79 ML/MIN (>89); POTASSIUM 3.4 MEQ/L (3.5-5.1); SODIUM (NA) 140 MEQ/L (136-145)
[2017-02-01 10:41] LABS: ALKALINE PHOSPHATASE 48 U/L (45-117); TOTAL BILIRUBIN ADULT 0.4 MG/DL (0.2-1.0)
[2017-02-01 10:42] LABS: ALCOHOL LESS THAN 3 MG/DL (0-5)
[2017-02-01 10:44] VITALS: BP 142/71; PULSE 64; O2SAT 97
[2017-02-01 10:48] LABS: ACETAMINOPHEN LESS THAN 2.0 MCG/ML (10.0-30.0)
[2017-02-01 10:55] LABS: BACTERIA, URINE RARE /hpf; BLOOD, URINE TRACE (NEG); COMMENT (UR) CULT NOT INDICATED; CULTURE IF INDICATED CULT NOT INDICATED; GLUCOSE,URINE NEG (NEG); KETONE, URINE NEG (NEG); MUCUS URINE MANY /lpf (OCC); NITRITE,URINE NEG (NEG); PH, URINE 5.5 (5.0-8.5); SQUAMOUS EPITHELIAL CELL URINE 2 /hpf (0-5); URINE COLOR YELLOW (YELLW/STRAW)
[2017-02-01 12:37] VITALS: BP 118/73; PULSE 65; RESP 16; O2SAT 100
[2017-02-01 14:12] VITALS: BP 142/86; PULSE 61; RESP 17; O2SAT 99
--- NOTE | 2017-02-01 14:45 | PD ---
HPI Chief Complaint: Altered Mental Status Time Seen by Provider: 08:51 Travel History International Travel<30 days: No Contact w/Intl Traveler<30days: No Traveled to known affect area: No History of Present Illness HPI This is a 36-year-old female who presents to the emergency department with altered mental status. She doesn't provide any history of an intermittently is combative. PFSH Past Medical History Cardiovascular Problems: Yes (HTN) Diminished Hearing: No Immune Disorder: Yes (HIV) Psychiatric: Yes (bipolar) ?: Unknown : 2 Para: 2 Social History Alcohol Use: Yes (OCC) Tobacco Use: No ("I JUST QUIT") Substance Use: Yes (Refuses to cooperate or answer) Allergies-Medications (Allergen,Severity, Reaction): Coded Allergies: Haldol (Verified Allergy, Severe, 01/30/17) Reported Meds & Prescriptions Reported Meds & Active Scripts Active Ibuprofen 800 Mg Tab 800 Mg PO Q8H PRN Amoxicillin 500 Mg Cap 1,000 Mg PO BID Triamcinolone Topical (Triamcinolone Acetonide) 0.1% Lotn 1 Applic TOPICAL TID Zyrtec Allergy (Cetirizine HCl) 10 Mg Cap 10 Mg PO DAILY Reported Vistaril (Hydroxyzine Pamoate) 25 Mg Cap 25 Mg PO TID Seroquel (Quetiapine Fumarate) 200 Mg Tab 200 Mg PO HS Multiple Vitamin 1 Tab 1 Tab PO DAILY Trileptal (Oxcarbazepine) 300 Mg Tab 300 Mg PO BID Review of Systems ROS Limitations: Intoxication Physical Exam Narrative GENERAL: Agitated SKIN: Focused skin assessment warm and dry. HEAD: Atraumatic. Normocephalic. EYES: Pupils equal and round. No injection or drainage. ENT: Moist mucous membranes NECK: Trachea midline. CARDIOVASCULAR: Regular rate and rhythm. No murmur appreciated. RESPIRATORY: Clear to auscultation. Breath sounds equal bilaterally. GASTROINTESTINAL: Abdomen soft, non-tender, nondistended. MUSCULOSKELETAL: No obvious deformities. NEUROLOGICAL: Intermittently yells, intermittent downward gaze, severe bruxism No obvious cranial nerve deficits. Moving all extremities. PSYCHIATRIC: Impaired insight and judgment. Data Data Last Documented VS Vital Signs Date Time Temp Pulse Resp B/P Pulse Ox O2 Delivery O2 Flow Rate FiO2 02/01/17 14:12 61 17 142/86 99 Room Air 02/01/17 08:42 97.7 Orders Electrocardiogram (02/01/17 08:18) Complete Blood Count With Diff (02/01/17 08:18) Comprehensive Metabolic Panel (02/01/17 08:18) Urinalysis - C+S If Indicated (02/01/17 08:18) Ed Urine Pregnancytest Poc (02/01/17 08:18) Blood Glucose (02/01/17 08:18) Diet Regular Basic (02/01/17 Breakfast) Drug Screen, Random Urine (02/01/17 08:18) Alcohol (Ethanol) (02/01/17 08:18) Salicylates (Aspirin) (02/01/17 08:18) Tylenol (Acetaminophen) (02/01/17 08:18) Haloperidol Inj (Haldol Inj) (02/01/17 09:00) Lorazepam Inj (Ativan Inj) (02/01/17 09:00) Diphenhydramine Inj (Benadryl Inj) (02/01/17 09:00) Sodium Chlor 0.9% 1000 Ml Inj (Ns 1000 M (02/01/17 09:00) Lorazepam Inj (Ativan Inj) (02/01/17 10:15) Restraints Non-Violent JAZMYNE.Q3H (02/01/17 14:31) Olanzapine Odt (Zyprexa Zydis Odt) (02/01/17 16:00) Psych Screen (02/01/17 15:55) Ct Brain W/O Iv Contrast(Rout) (02/01/17 ) Labs Laboratory Tests Test 02/01/17 02/01/17 10:00 10:15 White Blood Count 3.7 TH/MM3 Red Blood Count 4.10 MIL/MM3 Hemoglobin 12.3 GM/DL Hematocrit 36.7 % Mean Corpuscular Volume 89.5 FL Mean Corpuscular Hemoglobin 30.1 PG Mean Corpuscular Hemoglobin 33.6 % Concent Red Cell Distribution Width 14.1 % Platelet Count 237 TH/MM3 Mean Platelet Volume 8.3 FL Neutrophils (%) (Auto) 42.1 % Lymphocytes (%) (Auto) 38.8 % Monocytes (%) (Auto) 17.1 % Eosinophils (%) (Auto) 1.4 % Basophils (%) (Auto) 0.6 % Neutrophils # (Auto) 1.5 TH/MM3 Lymphocytes # (Auto) 1.4 TH/MM3 Monocytes # (Auto) 0.6 TH/MM3 Eosinophils # (Auto) 0.0 TH/MM3 Basophils # (Auto) 0.0 TH/MM3 CBC Comment DIFF FINAL Differential Comment Sodium Level 140 MEQ/L Potassium Level 3.4 MEQ/L Chloride Level 106 MEQ/L Carbon Dioxide Level 23.4 MEQ/L Anion Gap 11 MEQ/L Blood Urea Nitrogen 9 MG/DL Creatinine 0.97 MG/DL Estimat Glomerular Filtration 79 ML/MIN Rate Random Glucose 85 MG/DL Calcium Level 8.5 MG/DL Total Bilirubin 0.4 MG/DL Aspartate Amino Transf 26 U/L (AST/SGOT) Alanine Aminotransferase 23 U/L (ALT/SGPT) Alkaline Phosphatase 48 U/L Total Protein 8.4 GM/DL Albumin 3.6 GM/DL Salicylates Level 1.9 MG/DL Acetaminophen Level LESS THAN 2.0 MCG/ML Ethyl Alcohol Level LESS THAN 3 MG/DL Urine Color YELLOW Urine Turbidity HAZY Urine pH 5.5 Urine Specific [place] 1.037 Urine Protein 30 mg/dL Urine Glucose (UA) NEG mg/dL Urine Ketones NEG mg/dL Urine Occult Blood TRACE Urine Nitrite NEG Urine Bilirubin NEG Urine Urobilinogen 2.0 MG/DL Urine Leukocyte Esterase NEG Urine RBC 7 /hpf Urine WBC 1 /hpf Urine Squamous Epithelial 2 /hpf Cells Urine Bacteria RARE /hpf Urine Mucus MANY /lpf Microscopic Urinalysis Comment CULT NOT INDICATED Urine Opiates Screen NEG Urine Barbiturates Screen NEG Urine Amphetamines Screen NEG Urine Benzodiazepines Screen NEG Urine Cocaine Screen POS Urine Cannabinoids Screen POS [facility] Medical Decision Making Medical Screen Exam Complete: Yes Emergency Medical Condition: Yes Interpretation(s) Afebrile, no tachycardia, normotensive No leukocytosis Electrolytes are reassuring Urine drug screen positive for cocaine and cannabinoids Urinalysis: Some red blood cells Differential Diagnosis Cocaine intoxication, synthetic cannabinoid intoxication, alcohol intoxication, methamphetamine intoxication Narrative Course This is a 36-year-old female who presented to the emergency Department altered, combative, and confused. She is placed in a monitor and an IV was established. My initial impression was that this is likely synthetic cannabinoid intoxication. She was given 2 mg of IV Ativan, 5 mg of IV Haldol and Benadryl. She was observed. She required an additional 2 mg of IV Ativan. Labs are obtained which were all reassuring. I observed her for several hours but she failed to clear her and after she woke up she continued to appear psychotic. Ultimately I placed her under a Erazo act and I think she requires psychiatric evaluation. This may be drug induced psychosis or it may reflect an underlying psychiatric disease. 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
--- NOTE | 2017-02-01 14:55 | EKG ---
Date Performed: 02/01/2017 Time Performed: 08:55:46 PTAGE: 36 years EKG: SINUS BRADYCARDIA SEPTAL MYOCARDIAL INFARCTION ABNORMAL ECG PREVIOUS TRACING : 02/01/2017 08.38 DOCTOR: Harriet Hunter Interpretating Date/Time 02/07/2017 07:58:10
[2017-02-01] MEDS ORDERED: OLANZapine ODT 5 MG TAB PO ONE (16:00)
[2017-02-01 18:21] VITALS: BP 137/79; PULSE 70; RESP 16; O2SAT 96
[2017-02-01 19:47] VITALS: BP 159/76; PULSE 74; RESP 18; O2SAT 100
[2017-02-01] MEDS ORDERED: LORazepam 2 MG/ML VIAL IV PUSH ONE (21:00)
[2017-02-02 02:07] VITALS: BP 148/80; PULSE 56; RESP 18; O2SAT 100
--- NOTE | 2017-02-02 02:15 | RADRPT ---
EXAM DATE/TIME: 02/02/2017 02:00 [place] COMPARISON: No previous studies available for comparison. INDICATIONS : Altered mental status. RADIATION DOSE: 31.40 CTDIvol (mGy) MEDICAL HISTORY : Non-responsive. SURGICAL HISTORY : Non-responsive. ENCOUNTER: Initial ACUITY: 1 day PAIN SCALE: Non-responsive LOCATION: cranial TECHNIQUE: Multiple contiguous axial images were obtained of the head. Using automated exposure control and adj ustment of the mA and/or kV according to patient size, radiation dose was kept as low as reasonably a chievable to obtain optimal diagnostic quality images. DICOM format image data is available electro nically for review and comparison. FINDINGS: CEREBRUM: The ventricles are normal for age. No evidence of midline shift, mass lesion, hemorrhage or acute in farction. No extra-axial fluid collections are seen. POSTERIOR FOSSA: The cerebellum and brainstem are intact. The 4th ventricle is midline. The cerebellopontine angle i s unremarkable. EXTRACRANIAL: The visualized portion of the orbits is intact. SKULL: The calvaria is intact. No evidence of skull fracture. CONCLUSION: Normal examination. David Becerra MD on February 02, 2017 at 2:13 Board Certified Radiologist. This report was verified electronically.
[2017-02-02 06:09] VITALS: BP 141/90; PULSE 53; RESP 18; O2SAT 96
[2017-02-02 19:24] VITALS: BP 135/88; PULSE 59; RESP 18; O2SAT 99
== END 2017-02-02 19:45 ==
LOC: NEPE 08:16 → NEPJ 02-02 19:45
DX: F29 Unspecified psychosis not due to a substance or known physiological condition (principal); I10 Essential (primary) hypertension; F31.9 Bipolar disorder, unspecified; R00.1 Bradycardia, unspecified; R94.31 Abnormal electrocardiogram [ECG] [EKG]; Z88.5 Allergy status to narcotic agent; Z79.899 Other long term (current) drug therapy; Z21 Asymptomatic human immunodeficiency virus [HIV] infection status
CPT/HCPCS: 70450; 80053; 80307; 81001; 84703; 85025; 93005; 96361; 96372; 96374; 99285; J1200; J1630; J2060; J7030

== ENCOUNTER 2017-03-10 00:14 | Emergency (ER) | payer SELFPAY ==
[~2017-03-10] VITALS: Ht 167.6 cm; Wt 59.0 kg
[2017-03-10 00:15] VITALS: BP 171/100; PULSE 60; RESP 15; TEMP 98.1; O2SAT 100
--- NOTE | 2017-03-10 00:47 | PD ---
HPI Chief Complaint: Altered Mental Status Time Seen by Provider: 00:41 Travel History International Travel<30 days: No Contact w/Intl Traveler<30days: No Traveled to known affect area: No History of Present Illness HPI Patient is a 36-year-old female presents emergency department for evaluation of altered mental status. Triage brought the patient back to echo pod from the waiting room where she was apparently dropped off by police. The patient at that time told triage that she had taken some drugs but did not know what were. Patient on arrival is fairly somnolent, she is sleeping and moving about on the stretcher but will not open her eyes or converse with me. She responds quite well to sternal rub and painful stimuli. Moving all 4 extremities. She cannot provide me any history on her initial encounter. PFSH Past Medical History Cardiovascular Problems: Yes (HTN) Diminished Hearing: No Immune Disorder: Yes (HIV) Psychiatric: Yes (bipolar) ?: Not : 2 Para: 2 Social History Alcohol Use: Yes (OCC) Tobacco Use: No ("I JUST QUIT") Substance Use: Yes Allergies-Medications (Allergen,Severity, Reaction): Coded Allergies: haloperidol (Unverified Allergy, Severe, 02/08/17) Reported Meds & Prescriptions Reported Meds & Active Scripts Active Ibuprofen 800 Mg Tab 800 Mg PO Q8H PRN Amoxicillin 500 Mg Cap 1,000 Mg PO BID Triamcinolone Topical (Triamcinolone Acetonide) 0.1% Lotn 1 Applic TOPICAL TID Zyrtec Allergy (Cetirizine HCl) 10 Mg Cap 10 Mg PO DAILY Reported Vistaril (Hydroxyzine Pamoate) 25 Mg Cap 25 Mg PO TID Seroquel (Quetiapine Fumarate) 200 Mg Tab 200 Mg PO HS Multiple Vitamin 1 Tab 1 Tab PO DAILY Trileptal (Oxcarbazepine) 300 Mg Tab 300 Mg PO BID Review of Systems Except as stated in HPI: all other systems reviewed are Neg Physical Exam Narrative GENERAL: Well-developed well-nourished, appears much older than stated age. Sleeping soundly in a stretcher. SKIN: Focused skin assessment warm/dry. HEAD: Atraumatic. Normocephalic. EYES: Pupils equal and round. No scleral icterus. No injection or drainage. ENT: No nasal bleeding or discharge. Mucous membranes pink and moist. NECK: Trachea midline. No JVD. CARDIOVASCULAR: Regular rate and rhythm. No murmur appreciated. RESPIRATORY: No accessory muscle use. Clear to auscultation. Breath sounds equal bilaterally. GASTROINTESTINAL: Abdomen soft, non-tender, nondistended. Hepatic and splenic margins not palpable. MUSCULOSKELETAL: No obvious deformities. No clubbing. No cyanosis. No edema. NEUROLOGICAL: Awake and alert. After painful stimuli the patient is a GCS of 15. Moving all 4 extremities. Cranial nerves II through XII are grossly intact nonfocal Normal speech. PSYCHIATRIC: Appropriate mood and affect; insight and judgment normal. Data Data Last Documented VS Vital Signs Date Time Temp Pulse Resp B/P (MAP) Pulse Ox O2 Delivery O2 Flow Rate FiO2 03/10/17 05:20 03/10/17 04:45 80 15 100 Room Air 03/10/17 00:15 98.1 Orders Orders Complete Blood Count With Diff (03/10/17 00:25) Comprehensive Metabolic Panel (03/10/17 00:25) Urinalysis - C+S If Indicated (03/10/17 00:25) Ed Urine Pregnancytest Poc (03/10/17 00:25) Psych Screen (03/10/17 00:25) Drug Screen, Random Urine (03/10/17 00:25) Alcohol (Ethanol) (03/10/17 00:25) Salicylates (Aspirin) (03/10/17 00:25) Tylenol (Acetaminophen) (03/10/17 00:25) Ct Brain W/O Iv Contrast(Rout) (03/10/17 ) Cath For Specimen (03/10/17 00:45) Labs Laboratory Tests Test 03/10/17 01:07 03/10/17 01:10 White Blood Count 3.6 TH/MM3 Red Blood Count 3.76 MIL/MM3 Hemoglobin 11.2 GM/DL Hematocrit 33.8 % Mean Corpuscular Volume 89.8 FL Mean Corpuscular Hemoglobin 29.8 PG Mean Corpuscular Hemoglobin Concent 33.2 % Red Cell Distribution Width 14.2 % Platelet Count 257 TH/MM3 Mean Platelet Volume 8.2 FL Neutrophils (%) (Auto) 52.5 % Lymphocytes (%) (Auto) 31.9 % Monocytes (%) (Auto) 14.4 % Eosinophils (%) (Auto) 0.8 % Basophils (%) (Auto) 0.4 % Neutrophils # (Auto) 1.9 TH/MM3 Lymphocytes # (Auto) 1.1 TH/MM3 Monocytes # (Auto) 0.5 TH/MM3 Eosinophils # (Auto) 0.0 TH/MM3 Basophils # (Auto) 0.0 TH/MM3 CBC Comment DIFF FINAL Differential Comment Blood Urea Nitrogen 11 MG/DL Creatinine 0.85 MG/DL Random Glucose 90 MG/DL Total Protein 7.4 GM/DL Albumin 3.1 GM/DL Calcium Level 8.1 MG/DL Alkaline Phosphatase 51 U/L Aspartate Amino Transf (AST/SGOT) 26 U/L Alanine Aminotransferase (ALT/SGPT) 28 U/L Total Bilirubin 0.3 MG/DL Sodium Level 143 MEQ/L Potassium Level 3.2 MEQ/L Chloride Level 111 MEQ/L Carbon Dioxide Level 27.0 MEQ/L Anion Gap 5 MEQ/L Estimat Glomerular Filtration Rate 92 ML/MIN Salicylates Level LESS THAN 1.7 MG/DL Acetaminophen Level LESS THAN 2.0 MCG/ML Ethyl Alcohol Level LESS THAN 3 MG/DL Urine Color YELLOW Urine Turbidity CLEAR Urine pH 6.0 Urine Specific [place] 1.032 Urine Protein 30 mg/dL Urine Glucose (UA) NEG mg/dL Urine Ketones NEG mg/dL Urine Occult Blood NEG Urine Nitrite NEG Urine Bilirubin NEG Urine Urobilinogen 4.0 MG/DL Urine Leukocyte Esterase NEG Urine RBC LESS THAN 1 /hpf Urine WBC 2 /hpf Urine Squamous Epithelial Cells 1 /hpf Urine Amorphous Sediment RARE Urine Mucus FEW /lpf Microscopic Urinalysis Comment CULT NOT INDICATED Urine Opiates Screen NEG Urine Barbiturates Screen NEG Urine Amphetamines Screen NEG Urine Benzodiazepines Screen NEG Urine Cocaine Screen POS Urine Cannabinoids Screen POS [facility] Medical Decision Making Medical Screen Exam Complete: Yes Emergency Medical Condition: Yes Differential Diagnosis Altered mental status, head injury, metabolic derangement, substance abuse. Narrative Course Review of the patient's records shows a patient who has been the emergency Department with multiple complaints in the past, in the past when she was informed of her discharge she then told providers that she was suicidal a Erazo act. Patient was allowed to sleep it off in the emergency department for 5 hours. On reassessment at 05 100 the patient was aroused by painful stimuli then pacing the room began to have multiple demands for more warm blankets more food scrub pants. She denied any suicidal or homicidal ideation. When asked where she was she was oriented. She is fairly irritable but is clinically sober at this time ambulating with an even narrow based gait. She is now forming more complaints stating that her feet hurt and they're infected. I've examined her feet and there are calluses but no signs of infection. She has been given crackers and Gatorade here in the emergency department. CAT scan of her head was negative, her UDS was positive for cocaine and cannabinoids. Tylenol salicylates negative. Ethyl alcohol negative. CBC and CMP are unremarkable. The patient informs me that "they" brought her up here to be evaluated. She cannot elaborate further. She is denying suicidal or homicidal ideation at this time. She has no medical emergency at this time warranting further workup. She informs me that she is currently between homes. At this time she has no medical or surgical emergency and now that she is clinically sober she is stable for discharge. The patient was escorted from the building by security. Diagnosis Primary Impression: Altered mental status Qualified Codes: R41.82 - Altered mental status, unspecified Additional Impression: Cocaine abuse Patient Instructions: Cocaine Abuse (DC), General Instructions Disposition: 01 DISCHARGE HOME Condition: Stable Francisco Cook MD Mar 10, 2017 00:47
--- NOTE | 2017-03-10 01:35 | RADRPT ---
EXAM DATE/TIME: 03/10/2017 01:25 [facility] COMPARISON: CT BRAIN W/O CONTRAST, February 02, 2017, 2:00. INDICATIONS : Altered mental status. RADIATION DOSE: 32.14 CTDIvol (mGy) MEDICAL HISTORY : Hypertension. HIV. SURGICAL HISTORY : None. ENCOUNTER: Initial ACUITY: 1 day PAIN SCALE: Non-responsive LOCATION: cranial TECHNIQUE: Multiple contiguous axial images were obtained of the head. Using automated exposure control and adj ustment of the mA and/or kV according to patient size, radiation dose was kept as low as reasonably a chievable to obtain optimal diagnostic quality images. DICOM format image data is available electro nically for review and comparison. FINDINGS: CEREBRUM: The ventricles are normal for age. No evidence of midline shift, mass lesion, hemorrhage or acute in farction. No extra-axial fluid collections are seen. POSTERIOR FOSSA: The cerebellum and brainstem are intact. The 4th ventricle is midline. The cerebellopontine angle i s unremarkable. EXTRACRANIAL: The visualized portion of the orbits is intact. SKULL: The calvaria is intact. No evidence of skull fracture. CONCLUSION: Negative exam. No change from prior. Patricio Phillips MD on March 10, 2017 at 1:33 Board Certified Radiologist. This report was verified electronically.
[2017-03-10 02:11] LABS: BLOOD, URINE NEG (NEG); COMMENT (UR) CULT NOT INDICATED; CULTURE IF INDICATED CULT NOT INDICATED; GLUCOSE,URINE NEG (NEG); KETONE, URINE NEG (NEG); MUCUS URINE FEW /lpf (OCC); NITRITE,URINE NEG (NEG); SQUAMOUS EPITHELIAL CELL URINE 1 /hpf (0-5); URINE COLOR YELLOW (YELLW/STRAW)
[2017-03-10 02:15] LABS: AUTOMATED NEUTROPHIL # 1.9 TH/MM3 (1.8-7.7); BASOPHIL % 0.4 % (0.0-2.0); EOSINOPHIL % 0.8 % (0.0-4.0); HEMATOCRIT 33.8 % (35.0-46.0); HEMO FLAGS DIFF FINAL; LYMPH % 31.9 % (9.0-44.0); LYMPHOCYTE # 1.1 TH/MM3 (1.0-4.8); MEAN CELL VOLUME 89.8 FL (80.0-100.0); MEAN CORPUSCULAR HEMOGLOBIN 29.8 PG (27.0-34.0); MEAN CORPUSCULAR HGB CONC 33.2 % (32.0-36.0); MONO % 14.4 % (0.0-8.0); NEUT % 52.5 % (16.0-70.0); PLATELET COUNT 257 TH/MM3 (150-450); RED BLOOD COUNT 3.76 MIL/MM3 (4.00-5.30); RED CELL DISTRIBUTION WIDTH 14.2 % (11.6-17.2); WHITE BLOOD COUNT 3.6 TH/MM3 (4.0-11.0)
[2017-03-10 02:25] LABS: ALT (GPT) 28 U/L (10-53); ANION GAP 5 MEQ/L (5-15); AST (GOT) 26 U/L (15-37); BLOOD UREA NITROGEN 11 MG/DL (7-18); CHLORIDE 111 MEQ/L (98-107); GLOMERULAR FILTRATION RATE 92 ML/MIN (>89); POTASSIUM 3.2 MEQ/L (3.5-5.1); SODIUM (NA) 143 MEQ/L (136-145)
[2017-03-10 02:28] LABS: ACETAMINOPHEN LESS THAN 2.0 MCG/ML (10.0-30.0); ALKALINE PHOSPHATASE 51 U/L (45-117); TOTAL BILIRUBIN ADULT 0.3 MG/DL (0.2-1.0)
[2017-03-10 02:29] LABS: ALCOHOL LESS THAN 3 MG/DL (0-5)
[2017-03-10 03:00] VITALS: BP 147/83; PULSE 60; RESP 16; O2SAT 100
[2017-03-10 04:45] VITALS: BP 170/94; PULSE 80; RESP 15; O2SAT 100
== END 2017-03-10 05:40 | disposition home or self-care (01) ==
LOC: NEPE 00:14
DX: R41.82 Altered mental status, unspecified (principal); F14.10 Cocaine abuse, uncomplicated; I10 Essential (primary) hypertension; F31.9 Bipolar disorder, unspecified; Z21 Asymptomatic human immunodeficiency virus [HIV] infection status; Z79.899 Other long term (current) drug therapy; Z88.8 Allergy status to other drugs, medicaments and biological substances
CPT/HCPCS: 70450; 80053; 80307; 81001; 84703; 85025; 99284; P9612